=== PATIENT | female | born 1950 | race Caucasian/White ===

== ENCOUNTER 2017-01-18 06:20 | Inpatient (IN) | payer BC ==
[2016-12-26 08:21] VITALS: BMI 38.0
--- NOTE | 2016-12-26 09:02 | PAT Medication Instructions ---
Service Date Dec 26, 2016. Current Home Medication List Acetaminophen (Tylenol), 1,000 MG PO PRN Alendronate Sodium (Alendronate Sodium), 70 MG PO WK Baclofen (Baclofen), 10 MG PO QID Gabapentin (Gabapentin), 200 MG PO QAM Gabapentin (Neurontin), 500 MG PO HS Qdeadgukwee-Kmlvcbueoje-Uuh C- (Glucosamine Chondroitin), 1 TAB PO QPM Levothyroxine Sodium (Levothyroxine Sodium), 1 TAB PO Q2D Levothyroxine Sodium (Levothyroxine Sodium), 1 TAB PO Q2D Lisinopril/Hctz (Zestoretic 20MG/12.5MG), 2 TAB PO QAM Magnesium Oxide (Magnesium), 400 MG PO QPM Meloxicam (Mobic), 7.5 MG PO BID Metoprolol Succ (Toprol Xl) (Toprol-Xl), 25 MG PO QAM Multivitamin (Multivitamin), 1 TAB PO QAM Naloxegol Oxalate (Movantik), 25 MG PO QAM Richmond-3 Fatty Acids (Fish Oil), 3,000 MG PO QPM Oxycodone HCl (Oxycontin), 20 MG PO Q12H Pantoprazole (Protonix), 40 MG PO QAM Simvastatin (Simvastatin), 40 MG PO HS [Lidocaine 5%], 1 DOSE TOP TID Medication Instructions For Your Scheduled Surgery Alendronate Sodium (Alendronate Sodium), 70 MG PO WK (continue as usual on Sundays) - Hold the following medications 2 weeks prior to surgery: Richmond-3 Fatty Acids (Fish Oil), 3,000 MG PO QPM Icvathcpgni-Tspdfcdjnln-Lfm C- (Glucosamine Chondroitin), 1 TAB PO QPM - Hold the following medications 24 hours prior to surgery: Lidocaine 5% 1 DOSE TOP TID - Hold the following medications the morning of surgery: Lisinopril/Hctz (Zestoretic 20MG/12.5MG), 2 TAB PO QAM Meloxicam (Mobic), 7.5 MG PO BID (not told to stop by surgeon) Baclofen (Baclofen), 10 MG PO QID Multivitamin (Multivitamin), 1 TAB PO QAM Naloxegol Oxalate (Movantik), 25 MG PO QAM - Take the following medications the morning of surgery with a sip of water: Pantoprazole (Protonix), 40 MG PO QAM Oxycodone HCl (Oxycontin), 20 MG PO Q12H (can take up to four hours prior to surgery prior to surgery) Metoprolol Succ (Toprol Xl) (Toprol-Xl), 25 MG PO QAM Levothyroxine Sodium (Levothyroxine Sodium) Gabapentin (Gabapentin), 200 MG PO QAM Acetaminophen (Tylenol), 1,000 MG PO PRN (if needed) - Take the following medications as scheduled the night before surgery: Simvastatin (Simvastatin), 40 MG PO HS Oxycodone HCl (Oxycontin), 20 MG PO Q12H Magnesium Oxide (Magnesium), 400 MG PO QPM Gabapentin (Neurontin), 500 MG PO HS Baclofen (Baclofen), 10 MG PO QID Acetaminophen (Tylenol), 1,000 MG PO PRN If you have any questions please call us at [phone] or [phone] ( Jania) or [phone]
[2016-12-26 09:22] LABS: BASO % 0.5 %; BASO ABS # 0.05 K/uL (0-0.2); COMPLETE YES; EOS % 3.8 %; HEMATOCRIT 34.8 % (37-47); IG% 0.2 %; LYMPH % 30.2 %; LYMPH ABS # 2.86 K/uL (1.2-3.4); MEAN CELL VOLUME 82.7 fL (80-100); MEAN CORPUSCULAR HEMOGLOBIN 27.3 pg (25-34); MEAN PLATELET VOLUME 9.8 fL (7.4-10.4); MONO % 5.8 %; NEUT % 59.5 %; PLATELET COUNT 312 K/uL (130-400); RED BLOOD COUNT 4.21 M/uL (4.2-5.4); WHITE BLOOD COUNT 9.48 K/uL (4.8-10.8)
[2016-12-26 09:29] LABS: URINE APPEARANCE CLEAR (CLEAR); URINE BILIRUBIN NEG (NEG); URINE COLOR YELLOW; URINE EPITHELIAL CELL AUTO >30 /lpf (0-5); URINE NITRITE NEG (NEG); URINE SPECIFIC GRAVITY 1.016 (1.000-1.030); UROBILINOGEN NEG (NEG)
[2016-12-26 09:50] LABS: MANUAL MICROSCOPIC REQUIRED? NO; REVIEW REQ? YES
--- NOTE | 2016-12-26 09:52 | DIAGNOSTIC IMAGING REPORT ---
CHEST PREADMISSION(PA/LAT) HISTORY: Preop. COMPARISON: None. FINDINGS: The lungs are clear. Cardiac silhouette is normal in size. No pleural effusions. No pneumothorax. S-shaped scoliosis of the thoracolumbar spine. Lumbar spine fusion hardware. Small retrocardiac density favors a hiatus hernia. IMPRESSION: 1. No acute process within the chest. 2. Small hiatus hernia. Electronically signed by: Augie Green M.D. 12/26/2016 9:50 AM Dictated Date/Time: 12/26/2016 9:49 AM
[2016-12-26 09:57] LABS: BUN/CREATININE RATIO 18.3 (10-20); CALCIUM 8.9 mg/dl (8.5-10.1); POTASSIUM 3.6 mmol/L (3.5-5.1)
[2017-01-09 09:27] VITALS: BMI 38.0
--- NOTE | 2017-01-17 12:12 | HISTORY & PHYSICAL EXAMINATION ---
DATE OF ADMISSION: 01/18/2017 The patient presents to our office after having undergone several lumbar decompression with instrumented fusions as well as subsequent removal of instrumentation and continues to struggle with chronic pain. She is interested in pursuing a dorsal column stimulator trial with possible placement if successful. She apparently has pursued this option before, but they were unable to pass the leads percutaneously secondary to her scar tissue and are looking for a more formalized trial with open placement of the lead. PAST MEDICAL HISTORY: Significant for alopecia, anemia, arthritis, diabetes, GERD, gout, migraines, hiatal hernia, obesity, hypertension, scoliosis, thyroid disease. 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 ALLERGIES: None listed. MEDICATIONS: Include Zocor 20 mg a day, Synthroid 25 mcg p.o. daily, Norvasc 10 mg p.o. daily, Nexium 40 mg p.o. daily, Lyrica 50 mg 1 capsule t.i.d., Lopressor 50 mg half a tablet p.o. twice a day, Boniva 150 mg tablet monthly and Treximet 85/500 1 tablet at first sign of attack, followed with 1 tablet 2 hours later for headache, if needed. SOCIAL HISTORY: She is . She has 1 child. Denies alcohol. Denies tobacco. REVIEW OF SYSTEMS: Significant for back and leg pain. PHYSICAL EXAM: HEENT: Within normal limits. Speech appropriate Cardiopulmonary: No gross abnormalities Abdomen: Soft and nondistended : Deferred Neuro: Cranial nerves II-XII intact Musculoskeletal: Neurovascularly intact ASSESSMENT: Failed laminectomy syndrome and chronic pain. PLAN: At this point in time we will proceed with attempted dorsal column stimulator trial and if successful, subsequent dorsal column stimulator implant. Risks, benefits, pros, cons, and alternatives were outlined in detail. She would like to proceed with the above-mentioned surgical planning. MUSHTAQ
[2017-01-18] VITALS (10 sets, daily range): BP systolic 124–156; BP diastolic 64–90; PULSE 49–127; TEMP 36.3–36.7; O2SAT 94–99; Ht 157.5 cm; Wt 95.2 kg
[~2017-01-18] VITALS: Ht 157.5 cm; Wt 95.2 kg
[~2017-01-18 06:20] MED LIST: ACET-1256 PO; FSM70 PO; GABA-112 PO; GLUCTAB7 PO; LACTATED RINGER'S 1000ML 1,000 ML IV SCH; LEVO50TA6 PO; LEVO75TA5 PO; LIDOCAINE 5% TOP; LISI-787 PO; LRS10 PO; MAGN1TAB41 PO; MELO7.5T5 PO; METO25TA3 PO; MULT-506 PO; NALO1TAB2 PO; NRN100 PO; OMEG10002 PO; OXYSR/20 PO; PANT40TA PO; ZCR40 PO
[2017-01-18] MEDS ORDERED: FENTANYL CITRATE INJ 50 MCG/1 ML 2 ML VIAL ONE (06:44)
[2017-01-18] MEDS ORDERED: MIDAZOLAM HCL 1 MG/ML 2ML VIAL ONE (06:44)
[2017-01-18] MEDS ORDERED: BUPIVACAINE/EPINEPHRINE 0.5% MPF 1:200,000 30 ML VIAL ONE (07:08)
[2017-01-18] MEDS ORDERED: BACITRACIN 50000 UNIT VIAL ONE (07:08)
--- NOTE | 2017-01-18 07:29 | History & Physical Bridge Note ---
H&P Re-Evaluation Bridge Note: I have examined the patient, reviewed the History & Physical and in the interval since the performance of the History & Physical I have noted the following changes of clinical significance: No changes noted
[2017-01-18] MEDS ORDERED: NURSING VERBAL MED ORDER ONE ×2 (07:39→09:40)
[2017-01-18] MEDS ORDERED: CEFAZOLIN IV 2,000 MG/60 ML D5W IV ONE (07:42)
[2017-01-18] MEDS ORDERED: ONDANSETRON INJ 2 MG/ML 2 ML VIAL IV PRN (08:15)
[2017-01-18] MEDS ORDERED: ATROPINE SULFATE 0.1 MG/ML 5ML SYR IV PRN (08:15)
[2017-01-18] MEDS ORDERED: EpHEDrine SULFATE INJ 50 MG/ML AMP IV PRN (08:15)
[2017-01-18] MEDS ORDERED: LORAZEPAM 1 MG TAB PO PRN (08:45)
[2017-01-18] MEDS ORDERED: DO NOT ADMINISTER PNEUMOCOCCAL VACCINE PRN ×2 (08:45)
[2017-01-18] MEDS ORDERED: LORAZEPAM INJ 1 MG in SYRINGE 0 ML IV PRN (08:45)
[2017-01-18] MEDS ORDERED: FLOSEAL HEMOSTATIC MATRIX 5ML TOP ONE (08:45)
[2017-01-18] MEDS ORDERED: DO NOT ADMINISTER FLU VACCINE PRN ×3 (08:45)
[2017-01-18] MEDS ORDERED: HYDROmorphone INJ 1 MG/ML SYR IV PRN (08:45)
[2017-01-18] MEDS ORDERED: ACETAMINOPHEN 325 MG TAB PO PRN (08:45)
[2017-01-18] MEDS ORDERED: ACETAMINOPHEN 500 MG TAB PO PRN (08:45)
[2017-01-18] MEDS ORDERED: MAGNESIUM HYDROXIDE SUSP 30 ML UDC PO PRN (08:45)
--- NOTE | 2017-01-18 09:02 | DIAGNOSTIC IMAGING REPORT ---
SPINE ONE VIEW, ANY LEVEL CLINICAL HISTORY: STIMULATOR TRIAL COMPARISON STUDY: No previous studies for comparison. FINDINGS: A single intraoperative fluoroscopic spot images provided for interpretation. 9 seconds of fluoroscopic time was utilized. The image demonstrates a spinal cord stimulator projected over the mid to lower dorsal spine. The exact level is not possible to determine given the limited [id number]. IMPRESSION: A spinal cord stimulator is visualized within the mid to lower thoracic spine Electronically signed by: Teddy Israel M.D. 01/18/2017 9:01 AM Dictated Date/Time: 01/18/2017 9:00 AM
--- NOTE | 2017-01-18 09:06 | OPERATIVE REPORT ---
DATE OF OPERATION: 01/18/2017 PREOPERATIVE DIAGNOSIS: Chronic back and bilateral sciatica, failed laminectomy syndrome. POSTOPERATIVE DIAGNOSIS: Same. PROCEDURE PERFORMED: 1. T10 laminotomy. 2. Placement of spinal cord stimulator trial lead. SURGEON: Dr. Ray Alves. OPERATOR SPECIALIST COMMUNICATIONS: PATRICIA Cabrera. Due to the complex nature of the procedure, the entire surgery was performed with the assistant child care teacher of PATRICIA Cabrera. The medical assistant secretary, under direct supervision, was involved in the actual performance of all aspects of the surgical procedure including hemostasis, tissue retraction and incision, instrument management, patient positioning, and wound closure. ANESTHESIA: General. DISPOSITION: The patient awakened and taken to PACU in stable condition. HISTORY OF PATIENT'S PROBLEMS: This is a 66-year-old female that is well known to me, that has failed an extensive course of nonoperative care, subsequently elected to undergo the above-mentioned procedure. Risks, benefits, pros, cons, and alternatives were outlined in detail preoperatively. PROCEDURE IN DETAIL: The patient was met with preoperatively, case discussed, and all questions were addressed. At that point, the patient was taken back to the operative suite, and after undergoing successful general intubation by the department of anesthesia, was placed in prone position on Amador table atop Marco frame. All bony prominences were well padded and the eyes were inspected to ensure there was no external pressure placed upon them. At this point, the thoracolumbar spine was prepped and draped in normal sterile fashion. With the assistance of fluoroscopy, identified the T10 interlaminar space and a midline incision was created overlying this region. Sharp dissection with the assistance of Bovie cautery was performed down to and exposing the interlaminar space at T10-T11. A wide laminotomy was then created to safely place a dorsal column stimulator paddle in the canal. We verified our position with fluoroscopy. I then connected temporary leads to the paddle leads, passed them through the skin to the left flank. We then connected it and tested the efficacy. All contacts were noted to be in place. We then buried the wires under the skin at the decompressed site and the skin was closed with #1 Vicryl in the fascia, 2-0 Vicryl subcutaneously, 4-0 Monocryl for final skin closure. Steri-Strips and sterile dressing placed. The patient was awakened and taken to PACU in stable condition. I attest to the content of the Intraoperative Record and any orders documented therein. Any exceptio ns are noted below.
[2017-01-18] MEDS: FENTANYL CITRATE INJ 50 MCG/1 ML 2 ML VIAL IV PRN ×4 (09:12→09:27)
[2017-01-18] MEDS: HYDROmorphone INJ 1 MG/ML SYR IV PRN ×7 (09:32→10:15)
--- NOTE | 2017-01-18 10:47 | Anesthesiology Progress Note ---
Anesthesia Post Op Note Date & Time Jan 18, 2017 at 10:46 Vital Signs Pain Intensity: 5 Vital Signs Past 12 Hours Date Time Temp Pulse Resp B/P Pulse Ox O2 Delivery O2 Flow Rate FiO2 01/18/17 10:25 57 12 143/72 91 Nasal Cannula 4 01/18/17 10:15 36.2 70 19 145/72 94 Nasal Cannula 4 01/18/17 10:05 60 16 132/82 94 Nasal Cannula 4 01/18/17 09:55 69 15 158/63 95 Nasal Cannula 4 01/18/17 09:45 62 12 152/76 94 Nasal Cannula 4 01/18/17 09:35 66 21 144/96 95 Nasal Cannula 4 01/18/17 09:25 63 26 156/79 95 Mask 10 01/18/17 09:15 68 21 155/90 96 Mask 10 01/18/17 09:05 36.2 71 12 152/76 95 Mask 10 01/18/17 06:53 36.7 77 20 156/64 95 Room Air Notes Mental Status: alert / awake / arousable, participated in evaluation Pt Amnestic to Procedure: Yes Nausea / Vomiting: adequately controlled Pain: improving with treatment Airway Patency, RR, SpO2: stable & adequate BP & HR: stable & adequate Hydration State: stable & adequate Anesthetic Complications: no major complications apparent
[2017-01-18] MEDS ORDERED: KETOROLAC TROMETHAMINE 30 MG/ML VIAL ONE (10:48)
[2017-01-18] MEDS ORDERED: ONDANSETRON INJ 2 MG/ML 2 ML VIAL ONE (10:48)
[2017-01-18] MEDS ORDERED: NEOSTIGMINE METHYLSULFATE 1 MG/ML 10ML VIAL ONE (10:48)
[2017-01-18] MEDS ORDERED: GLYCOPYRROLATE INJ 0.2 MG/ML VIAL ONE (10:48)
[2017-01-18] MEDS ORDERED: LIDOCAINE HCL 2% 2 ML VIAL (20MG/ML) ONE (10:48)
[2017-01-18] MEDS ORDERED: ROCURONIUM BROMIDE 10 MG/ML 5 ML VIAL ONE (10:48)
[2017-01-18] MEDS ORDERED: PROPOFOL IV EMULSION 10 MG/ML 20 ML VIAL IV ONE (10:48)
[2017-01-18] MEDS ORDERED: DEXAMETHASONE SOD INJ 4 MG/ML VIAL ONE (10:48)
[2017-01-18] MEDS ORDERED: HYDROmorphone INJ 2 MG/ML SYR/VIAL IV PRN (12:15)
[2017-01-18] MEDS: BACLOFEN 10 MG TAB PO SCH ×3 (12:51→21:37)
[2017-01-18] MEDS: SODIUM CHLORIDE 0.9% 1000ML 1,000 ML IV SCH ×2 (12:51→21:38)
[2017-01-18] MEDS: CEFAZOLIN IV 2,000 MG in DEXTROSE 5% 50ML 50 ML IV SCH (15:12)
[2017-01-18] MEDS: ONDANSETRON INJ 2 MG/ML 2 ML VIAL IV PRN (15:12)
[2017-01-18] MEDS: SIMVASTATIN 40 MG TAB PO SCH (21:37)
[2017-01-18] MEDS: OXYCODONE HCL 20 MG TABCR (OXYCONTIN) PO SCH (21:37)
[2017-01-18] MEDS: GABAPENTIN 100 MG CAP PO SCH (21:37)
[2017-01-18] MEDS: DOCUSATE SODIUM 100 MG CAP PO SCH (21:38)
[2017-01-19] VITALS (7 sets, daily range): BP systolic 117–154; BP diastolic 77–84; PULSE 61–69; TEMP 36.3–36.6; O2SAT 88–99
[2017-01-19] MEDS: CEFAZOLIN IV 2,000 MG in DEXTROSE 5% 50ML 50 ML IV SCH ×2 (00:10→07:54)
[2017-01-19] MEDS: LEVOTHYROXINE 50 MCG TAB PO SCH (07:37)
[2017-01-19] MEDS: OXYCODONE HCL IR 5 MG TAB (IMMEDIATE RELEASE) PO PRN ×2 (07:37→16:49)
--- NOTE | 2017-01-19 08:58 | PROGRESS NOTE ---
DATE: 01/19/2017 DATE: 01/19/2017. Postop day 1. Her spinal cord stimulator seems to be working very nicely. She has noted significant improvement in her back and leg symptoms. Subsequently, we discussed moving forward with a formal implantation tomorrow. She understands and agrees and would like to pursue this. She will be made n.p.o. after midnight.
[2017-01-19] MEDS: OXYCODONE HCL 20 MG TABCR (OXYCONTIN) PO SCH ×2 (09:00→20:18)
[2017-01-19] MEDS: BACLOFEN 10 MG TAB PO SCH ×4 (10:04→20:18)
[2017-01-19] MEDS: DOCUSATE SODIUM 100 MG CAP PO SCH ×2 (10:04→20:18)
[2017-01-19] MEDS: PANTOprazole SOD 40 MG TAB PO SCH (10:04)
[2017-01-19] MEDS: LISINOPRIL/HCTZ 20/12.5MG TAB PO SCH (10:05)
[2017-01-19] MEDS: GABAPENTIN 100 MG CAP PO SCH ×2 (10:05→20:19)
[2017-01-19] MEDS: METOPROLOL SUCC 25MG EXT REL TAB PO SCH (10:06)
[2017-01-19] MEDS: ONDANSETRON INJ 2 MG/ML 2 ML VIAL IV PRN (10:15)
--- NOTE | 2017-01-19 10:43 | Anesthesiology Progress Note ---
Anesthesia Post Op Note Date & Time Jan 19, 2017 at 10:42 Vital Signs Vital Signs Past 12 Hours Date Time Temp Pulse Resp B/P Pulse Ox O2 Delivery O2 Flow Rate FiO2 01/19/17 09:37 36.5 64 12 133/82 88 Room Air 01/19/17 07:35 Room Air 01/19/17 07:32 36.3 66 21 150/80 94 Room Air 01/19/17 03:10 36.5 69 16 130/81 97 Room Air 01/19/17 00:15 Room Air 01/18/17 23:04 64 01/18/17 22:55 36.3 127 18 124/74 97 Room Air Notes Mental Status: alert / awake / arousable, participated in evaluation Pt Amnestic to Procedure: Yes Nausea / Vomiting: adequately controlled Pain: adequately controlled Airway Patency, RR, SpO2: stable & adequate BP & HR: stable & adequate Hydration State: stable & adequate Anesthetic Complications: no major complications apparent
[2017-01-19] MEDS: SIMVASTATIN 40 MG TAB PO SCH (20:18)
[2017-01-20] MEDS ORDERED: BISACODYL 10 MG SUPP PR PRN (06:00)
[2017-01-20 06:26] VITALS: BP 122/78; PULSE 71; TEMP 36.7; O2SAT 91
[2017-01-20] MEDS ORDERED: MIDAZOLAM HCL 1 MG/ML 2ML VIAL IV ONE (06:51)
[2017-01-20] MEDS ORDERED: FENTANYL CITRATE INJ 50 MCG/1 ML 2 ML VIAL IV ONE (06:52)
[2017-01-20] MEDS ORDERED: BUPIVACAINE/EPINEPHRINE 0.5% MPF 1:200,000 30 ML VIAL ONE (06:59)
[2017-01-20] MEDS ORDERED: BACITRACIN 50000 UNIT VIAL ONE (06:59)
[2017-01-20] MEDS ORDERED: SODIUM CHLORIDE 0.9% PF 50 ML VIAL ONE (06:59)
[2017-01-20] MEDS ORDERED: LEVOTHYROXINE 75 MCG TAB PO SCH (07:00)
[2017-01-20] MEDS ORDERED: CEFAZOLIN IV 2,000 MG/60 ML D5W IV ONE (07:39)
[2017-01-20] MEDS ORDERED: MEPERIDINE HCL 25 MG/ML CARP IV PRN (08:00)
[2017-01-20] MEDS ORDERED: HYDROmorphone INJ 1 MG/ML SYR IV PRN (08:00)
[2017-01-20] MEDS ORDERED: ATROPINE SULFATE 0.1 MG/ML 5ML SYR IV PRN (08:00)
[2017-01-20] MEDS ORDERED: EpHEDrine SULFATE INJ 50 MG/ML AMP IV PRN (08:00)
[2017-01-20] MEDS ORDERED: ONDANSETRON INJ 2 MG/ML 2 ML VIAL IV PRN (08:00)
[2017-01-20] MEDS ORDERED: LABETALOL HCL IV 5 MG/ML 20ML IV PRN (08:00)
[2017-01-20] MEDS ORDERED: HYDROmorphone INJ 2 MG/ML SYR/VIAL IV ONE (08:14)
[2017-01-20] MEDS ORDERED: RXC5 PO (08:19)
--- NOTE | 2017-01-20 08:20 | Discharge Instructions ---
Discharge Instructions Date of Service Jan 20, 2017. Admission Reason for Admission: Post Laminectomy Syndrome Discharge Discharge Diagnosis / Problem: chronic back pain Discharge Goals Goal(s): Improve function Activity Recommendations Activity Limitations: per Instructions/Follow-up section . Instructions / Follow-Up Instructions / Follow-Up ACTIVITY RECOMMENDATIONS: SELF CARE INSTRUCTIONS AFTER A LAMINECTOMY 1. No prolonged sitting (less than 30 minutes for the first 3 weeks after surgery). 2. No bending, lifting more than 5 pounds, or twisting (roll like a log when turning in bed). 3. You may shower 3 days after surgery if no drainage from wound. Thoroughly dry wound. Do not soak in the tub. 4. Please walk as much as you can for exercise. Gradually increase the distance that you walk as your endurance increases. 5. You may drive in 7-10 days if you are comfortable and no longer requiring pain medications. SPECIAL CARE INSTRUCTIONS: VERY IMPORTANT TO READ AND REVIEW A. Your surgical incision has been closed with a cosmetic suture under the skin that will dissolve in about 6 weeks. In 14 days, you can use a pair of clean scissors and cut the suture that is left outside of the skin at the ends of your incision. B. Complications are uncommon, but please contact us if you have any signs or symptoms of: 1. wound infection (fever higher than 102.5 degrees F, redness, separation of wound, drainage, or increasing pain from the incision) 2. blood clots in legs (pain, swelling, redness and warmth in legs) 3. urinary tract infection (fever higher than 102.5 degrees, burning upon urination or increased frequency of urination) 4. nerve problems (inability to walk on your toes or heels, numbness, loss of bowel or bladder control) 5. any other symptoms that concern you. C. Please call the office at if you have any concerns or questions about your operation or recovery. MANAGING PAIN AFTER SPINAL SURGERY 1. Narcotic medication is intended for short-term use and will be provided for surgical pain. Surgical pain usually lasts for a period of 4-6 weeks. Narcotic medication includes Percocet, Vicodin, Darvocet, Tylenol #3 or Lortab. 2. Longer-term pain is more appropriately treated with non-narcotic medication such as Tylenol ES. 3. Muscle spasm is not appropriately treated with narcotics. Muscle relaxers such as Soma, Flexeril or Skelaxin can be used along with Tylenol ES. 4. Remember that we all live with some "aches and pains". This is not unusual or uncommon after an injury or as we get older. 5. We will provide appropriate medication within the normal guidelines of their prescribed use. We will also be very cautious and aware of potential abuse and extended duration of patients' medication needs. 6. Please allow 2-3 days to process refills. Prescriptions will not be mailed but must be picked up at the office. FOLLOW UP VISIT: Keep your scheduled follow-up appointment. Any questions, please call the office at . Current Hospital Diet Patient's current hospital diet: Regular Diet Discharge Diet Recommended Diet: Regular Diet Procedures Procedures Performed: Spinal Cord Stimulator Trial Pending Studies Studies pending at discharge: no Medical Emergencies . Who to Call and When: Medical Emergencies: If at any time you feel your situation is an emergency, please call 911 immediately. . Non-Emergent Contact Non-Emergency issues call your: Primary Care Provider . "Provider Documentation" section prepared by Ray Alves. VTE Core Measure Inpt VTE Proph given/why not?: Irma Vazquez, SCD's
[2017-01-20] MEDS ORDERED: ROCURONIUM BROMIDE 10 MG/ML 5 ML VIAL IV ONE (08:21)
[2017-01-20] MEDS ORDERED: ONDANSETRON INJ 2 MG/ML 2 ML VIAL IV ONE ×2 (08:21→08:36)
[2017-01-20] MEDS ORDERED: PROPOFOL IV EMULSION 10 MG/ML 20 ML VIAL IV ONE (08:21)
[2017-01-20] MEDS ORDERED: NEOSTIGMINE METHYLSULFATE 1 MG/ML 10ML VIAL IM ONE (08:21)
[2017-01-20] MEDS ORDERED: EpHEDrine SULFATE 50MG/5ML SYR IV ONE (08:21)
[2017-01-20] MEDS ORDERED: DEXAMETHASONE SOD INJ 4 MG/ML VIAL IV ONE (08:21)
[2017-01-20] MEDS ORDERED: PHENYLEPHRINE 100MCG/ML 5ML SYR IV ONE (08:21)
[2017-01-20] MEDS ORDERED: GLYCOPYRROLATE INJ 0.2 MG/ML VIAL IM ONE (08:21)
[2017-01-20] MEDS ORDERED: RANITIDINE HCL 25 MG/ML INJ IV ONE (08:21)
--- NOTE | 2017-01-20 08:31 | OPERATIVE REPORT ---
DATE OF OPERATION: 01/20/2017 PREOPERATIVE DIAGNOSES: Chronic back and bilateral leg pain. POSTOPERATIVE DIAGNOSIS: Same. PROCEDURE PERFORMED: Removal of temporary external dorsal column stimulator leads and implantation of rechargeable dorsal column stimulator battery. SURGEON: Dr. Ray Alves. DIRECTOR COMMUNITY HEALTH NURSING: Macho Ayala PA-C. Due to the complex nature of the procedure, the entire surgery was performed with the pastrycook's assistant of Macho Ayala PA-C. The radiology physician assistant, under direct supervision, was involved in the actual performance of all aspects of the surgical procedure including hemostasis, tissue retraction and incision, instrument management, patient positioning, and wound closure. ANESTHESIA: General. DISPOSITION: The patient awakened and taken to PACU in stable condition. HISTORY OF PATIENT'S PROBLEMS: A 66-year-old female underwent a trial dorsal column stimulator placement 2 days ago. She had excellent results and coverage of her pain patterns and elected to have permanent placement. Risks, benefits, pros, cons, and alternatives were outlined in detail preoperatively. PROCEDURE: The patient was met with preoperatively, case discussed and all questions were addressed. At that point the patient was taken back to operative suite and after undergoing successful general intubation by the department anesthesia was placed in prone position on Amador table atop Marco frame. All bony prominences were well padded and the eyes were inspected to ensure there was no external pressure placed upon them. At this point the thoracolumbar spine was prepped and draped in normal sterile fashion. At this point the previous thoracic incision was opened, copiously irrigated with antibiotic solution and the temporary leads detached and removed externally. I then created a pocket over the right flank an appropriate size for the battery. We past the leads to the pocket site, attached the battery, tested the battery noting it to be functional, placed it in the pocket. Incision was then closed with 1-0 Vicryl in the fascia, 2-0 Vicryl subcutaneously, 4-0 Monocryl for final skin closure. Steri-Strips and sterile dressing placed. The patient was awakened and taken to PACU in stable condition. I attest to the content of the Intraoperative Record and any orders documented therein. Any exceptio ns are noted below.
[2017-01-20] MEDS ORDERED: LIDOCAINE HCL 2% 2 ML VIAL (20MG/ML) INFIL ONE (08:38)
[2017-01-20] MEDS ORDERED: KETOROLAC TROMETHAMINE 30 MG/ML VIAL IV. ONE (08:38)
[2017-01-20] MEDS: FENTANYL CITRATE INJ 50 MCG/1 ML 2 ML VIAL IV PRN ×2 (08:50→08:55)
--- NOTE | 2017-01-20 09:38 | Anesthesiology Progress Note ---
Anesthesia Post Op Note Date & Time Jan 20, 2017 at 09:37 Vital Signs Pain Intensity: 2 Vital Signs Past 12 Hours Date Time Temp Pulse Resp B/P Pulse Ox O2 Delivery O2 Flow Rate FiO2 01/20/17 09:36 69 18 99 01/20/17 09:36 69 18 01/20/17 09:35 145/86 01/20/17 09:31 69 25 01/20/17 09:31 69 25 100 01/20/17 09:30 137/80 01/20/17 09:26 66 16 01/20/17 09:26 66 16 100 01/20/17 09:25 36.4 146/88 01/20/17 09:22 67 20 99 01/20/17 09:22 66 20 01/20/17 09:20 142/84 01/20/17 09:17 69 19 99 01/20/17 09:17 69 19 01/20/17 09:16 141/77 01/20/17 09:12 66 18 01/20/17 09:12 67 18 100 01/20/17 09:11 136/73 01/20/17 09:07 66 18 100 01/20/17 09:07 65 18 01/20/17 09:06 142/75 01/20/17 09:02 65 13 01/20/17 09:02 66 13 99 01/20/17 08:57 64 13 01/20/17 08:57 65 13 100 01/20/17 08:56 139/73 01/20/17 08:55 66 16 01/20/17 08:55 67 16 100 01/20/17 08:51 142/74 01/20/17 08:50 65 20 100 01/20/17 08:50 64 20 01/20/17 08:45 36.5 68 16 143/71 100 Mask 10 01/20/17 08:45 70 16 143/71 100 01/20/17 08:45 70 16 01/20/17 06:26 36.7 71 18 122/78 91 Room Air 01/19/17 23:33 36.4 61 16 131/84 99 Nasal Cannula 2.0 Notes Mental Status: alert / awake / arousable, participated in evaluation Pt Amnestic to Procedure: Yes Nausea / Vomiting: adequately controlled Pain: adequately controlled Airway Patency, RR, SpO2: stable & adequate BP & HR: stable & adequate Hydration State: stable & adequate Anesthetic Complications: no major complications apparent
[2017-01-20 10:21] VITALS: BP 146/78; PULSE 69; TEMP 36.3; O2SAT 99
[2017-01-20] MEDS: METOPROLOL SUCC 25MG EXT REL TAB PO SCH (10:23)
[2017-01-20] MEDS: DOCUSATE SODIUM 100 MG CAP PO SCH ×2 (10:23→21:49)
[2017-01-20] MEDS: BACLOFEN 10 MG TAB PO SCH ×4 (10:23→21:50)
[2017-01-20] MEDS: LISINOPRIL/HCTZ 20/12.5MG TAB PO SCH (10:23)
[2017-01-20] MEDS: GABAPENTIN 100 MG CAP PO SCH ×2 (10:24→21:50)
[2017-01-20] MEDS: PANTOprazole SOD 40 MG TAB PO SCH (10:24)
[2017-01-20] MEDS: OXYCODONE HCL 20 MG TABCR (OXYCONTIN) PO SCH ×2 (10:25→21:49)
[2017-01-20] MEDS: POLYETHYLENE (MIRALAX) 17 GM PACK PO SCH (10:25)
[2017-01-20 11:02] VITALS: BP 120/74; PULSE 69; TEMP 36.5; O2SAT 94
[2017-01-20 12:00] VITALS: BP 152/72; PULSE 69; O2SAT 96
[2017-01-20 13:05] VITALS: BP 176/71; PULSE 90; O2SAT 92
[2017-01-20 15:02] VITALS: BP 158/76; PULSE 72; TEMP 36.9; O2SAT 98
--- NOTE | 2017-01-20 15:53 | DISCHARGE SUMMARY ---
PRINCIPAL DIAGNOSIS: Chronic persistent back pain. PROCEDURE PERFORMED: Implantation of dorsal column stimulator. HOSPITAL COURSE FOLLOWS: On January 18, patient underwent trial dorsal column stimulator lead placement. She had marked improvement of her symptom complex postoperatively. Subsequently, we elected her to undergo permanent implant. This was done on January 20. She tolerated this well and taken to the orthopedic floor postoperatively. Progressed appropriately and subsequently discharged home. Discharge orders and instructions found on the chart for further review.
[2017-01-20] MEDS: BISACODYL 5 MG TABEC PO PRN (17:46)
[2017-01-20] MEDS: SIMVASTATIN 40 MG TAB PO SCH (21:49)
[2017-01-21 00:40] VITALS: BP 159/95; PULSE 67; TEMP 36.6; O2SAT 98
[2017-01-21 03:44] VITALS: BP 131/85; PULSE 69; TEMP 36.3; O2SAT 97
[2017-01-21] MEDS: LEVOTHYROXINE 50 MCG TAB PO SCH (06:16)
[2017-01-21 07:13] VITALS: BP 160/84; PULSE 77; TEMP 36.6; O2SAT 96
[2017-01-21] MEDS: OXYCODONE HCL 20 MG TABCR (OXYCONTIN) PO SCH (09:00)
[2017-01-21] MEDS: LISINOPRIL/HCTZ 20/12.5MG TAB PO SCH (09:00)
[2017-01-21] MEDS: BACLOFEN 10 MG TAB PO SCH ×2 (09:00→13:02)
[2017-01-21] MEDS: PANTOprazole SOD 40 MG TAB PO SCH (09:01)
[2017-01-21] MEDS: METOPROLOL SUCC 25MG EXT REL TAB PO SCH (09:01)
[2017-01-21] MEDS: DOCUSATE SODIUM 100 MG CAP PO SCH (09:01)
[2017-01-21] MEDS: GABAPENTIN 100 MG CAP PO SCH (09:02)
[2017-01-21] MEDS: POLYETHYLENE (MIRALAX) 17 GM PACK PO SCH (09:02)
[2017-01-21] MEDS: BISACODYL 5 MG TABEC PO PRN (09:15)
[2017-01-21 10:20] VITALS: BP 160/84; PULSE 77; TEMP 36.6; O2SAT 96
--- NOTE | 2017-01-21 10:21 | PROGRESS NOTE ---
DATE: 01/21/2017 The patient is improved this morning. She did have issues with urinary retention last evening but that has improved dramatically over the past 8 hours. She is up and ambulatory in a chair and pain controlled. PHYSICAL EXAMINATION: She has good strength to testing. Dressings are in place. ASSESSMENT: Status post implantation of dorsal column stimulator. PLAN: At this point, we will allow her to go home today. Discharge orders and instructions reviewed in detail.
== END 2017-01-21 13:37 | disposition home or self-care (01) | DRG 30 ==
LOC: ENRESERVTM → ENRESERVDT → C.ACU 06:20 → C.3E 06:30
PROVIDERS: ADMIT Orthopaedic Surgery Orthopaedic Surgery of the Spine; ATTEND Orthopaedic Surgery Orthopaedic Surgery of the Spine
PROC: 00HU0MZ Insertion of Neurostimulator Lead into Spinal Canal, Open Approach (ICD-10-PCS; principal; 2017-01-18 07:45)
PROC: 0JH80MZ Insertion of Stimulator Generator into Abdomen Subcutaneous Tissue and Fascia, Open Approach (ICD-10-PCS; 2017-01-20)
DX: G89.29 Other chronic pain (principal); M54.9 Dorsalgia, unspecified; M96.1 Postlaminectomy syndrome, not elsewhere classified; M79.604 Pain in right leg; M79.605 Pain in left leg; E11.9 Type 2 diabetes mellitus without complications; K21.9 Gastro-esophageal reflux disease without esophagitis; M10.9 Gout, unspecified; I10 Essential (primary) hypertension; M19.90 Unspecified osteoarthritis, unspecified site; Z98.51 Tubal ligation status; Z98.1 Arthrodesis status